=== PATIENT | male | born 1935 | race Caucasian/White ===

== ENCOUNTER 2020-08-15 10:20 | Outpatient (CLI) | payer MEDICARE ==
--- NOTE | 2020-08-15 11:01 | BD ---
EXAM: DEXA bone density examination HISTORY: 85-year-old male with osteopenia for screening COMPARISON: None FINDINGS: L1--bone mineral density 0.992 g/sq cm; T score -0.7 L2--bone mineral density 1.167 g/sq cm; T score 0.7 L3--bone mineral density 1.125 g/sq cm; T score 02 L4--bone mineral density 1.265 g/sq cm; T score 1.6 Total L1-L4--bone mineral density 1.145 g/sq cm; T score 0.5 Right femoral neck--bone mineral density0.557; T score -2.7 Total proximal right femur--bone mineral density 0.820; T score -1.4 IMPRESSION: Osteoporosis.
== END 2020-08-15 10:21 | disposition home or self-care (01) ==
LOC: BICMAMMO 10:20
PROVIDERS: ATTEND Internal Medicine
DX: M80.00XA Age-related osteoporosis with current pathological fracture, unspecified site, initial encounter for fracture (principal)
CPT/HCPCS: 77080

== ENCOUNTER 2021-12-17 10:04 | Outpatient (CLI) | payer MEDICARE | END 2021-12-17 10:05 | disposition home or self-care (01) | LOC: MRI 10:04 | PROVIDERS: ATTEND Internal Medicine | DX: M47.22 Other spondylosis with radiculopathy, cervical region (principal); R20.0 Anesthesia of skin; R29.898 Other symptoms and signs involving the musculoskeletal system; M48.02 Spinal stenosis, cervical region; M43.12 Spondylolisthesis, cervical region | CPT/HCPCS: 72141 ==

== ENCOUNTER 2022-11-11 10:35 | Inpatient (IN) | payer MEDICARE ==
[2022-11-11 11:28] LABS: #Eosinphils 0.2 thou/uL (0.0-0.7); #Lymphocytes 1.4 thou/uL (1.20-3.40); #Monocytes 0.6 thou/uL (0.11-0.59); #Neutrophils 4.1 thou/uL (1.40-6.50); %Basophils 0.7 % (0.0-1.0); %Eosinophils 2.9 % (0.0-10.0); %Lymphocytes 22.2 % (21.0-51.0); %Monocytes 9.2 % (0.0-10.0); Hemoglobin 13.1 g/dL (14.0-18.0); Mean Corpuscular Hemoglobin 31.4 pg (27.0-31.0); Mean Platelet Volume 9.9 fL (7.4-10.4); Platelet Count 164 10x3/uL (130-400); RBC Distribution Width 11.6 % (11.5-14.5); Red Blood Cell (RBC) Count 4.18 mill/uL (4.70-6.10); White Blood Cell (WBC) Count 6.3 10x3/uL (4.8-10.8)
[2022-11-11 11:51] LABS: ALT (SGPT) 26 U/L (8-55); AST (SGOT) 27 U/L (5-34); Albumin 4.4 g/dL (3.4-4.8); Alkaline Phosphatase 51 U/L (40-110); Anion Gap 9 mmol/L (10-20); BUN (Urea Nitrogen) 19 mg/dL (8.4-25.7); Bilirubin, Total 0.8 mg/dL (0.2-1.2); Calc. Creatinine Clearance 0 mL/min (70-130); Calcium 9.2 mg/dL (7.8-10.44); Carbon Dioxide 27 mmol/L (23-31); Chloride 105 mmol/L (98-107); Estimated GFR 62; Globulin 2.9 g/dL (2.4-3.5); Glucose 92 mg/dL (83-110); Lipase 55 U/L (8-78); Potassium 4.2 mmol/L (3.5-5.1); Protein, Total 7.3 g/dL (5.8-8.1); Sodium 137 mmol/L (136-145)
[2022-11-11 12:45] LABS: Magnesium 2.3 mg/dL (1.6-2.6)
[2022-11-11 12:57] LABS: Bilirubin Negative (Negative); Blood, Urine Negative (Negative); Clarity Clear (Clear); Glucose, Urine (Dipstick) Normal (Negative); Ketone, Urine Negative (Negative); Leukocyte Negative Leu/uL (Negative); Nitrite Negative (Negative); Protein, Urine (Dipstick) Negative (Neg-Trace); Specific Gravity, Urine 1.008 (1.002-1.036); Urobilinogen Normal mg/dL (Less than 2)
[2022-11-11] MEDS ORDERED: Iopamidol-370 76% 500 ML 1 ML ONE (13:25)
[2022-11-11] MEDS ORDERED: HYDROcodone/Acetaminophen 7.5/325 mg Tablet PO PRN (14:58)
[2022-11-11] MEDS ORDERED: hydrALAZINE 20 MG/ML VIAL SLOW IVP PRN (15:01)
[2022-11-11 15:32] VITALS: BMI 25.9
[2022-11-12 05:30] LABS: #Eosinphils 0.2 thou/uL (0.0-0.7); #Lymphocytes 1.2 thou/uL (1.20-3.40); #Monocytes 0.6 thou/uL (0.11-0.59); #Neutrophils 3.1 thou/uL (1.40-6.50); %Basophils 0.1 % (0.0-1.0); %Eosinophils 3.8 % (0.0-10.0); %Lymphocytes 23.9 % (21.0-51.0); %Monocytes 11.7 % (0.0-10.0); %Neutrophils 60.6 % (42.0-75.0); Hemoglobin 12.4 g/dL (14.0-18.0); Mean Corpuscular Hemoglobin 32.2 pg (27.0-31.0); Mean Corpuscular Volume 97.4 fl (78.0-98.0); Mean Platelet Volume 9.2 fL (7.4-10.4); Platelet Count 144 10x3/uL (130-400); RBC Distribution Width 11.6 % (11.5-14.5); Red Blood Cell (RBC) Count 3.85 mill/uL (4.70-6.10); White Blood Cell (WBC) Count 5.1 10x3/uL (4.8-10.8)
[2022-11-12] MEDS: Levothyroxine Sodium 88 MCG TAB PO SCH (05:33)
[2022-11-12 05:52] LABS: Anion Gap 9 mmol/L (10-20); BUN (Urea Nitrogen) 17 mg/dL (8.4-25.7); Calc. Creatinine Clearance 61 mL/min (70-130); Calcium 8.6 mg/dL (7.8-10.44); Carbon Dioxide 26 mmol/L (23-31); Chloride 109 mmol/L (98-107); Estimated GFR 69; Glucose 90 mg/dL (83-110); Potassium 3.9 mmol/L (3.5-5.1); Sodium 140 mmol/L (136-145)
[2022-11-12] MEDS: Enoxaparin Sodium 40 MG/0.4 ML SYRINGE SC SCH (08:46)
[2022-11-13] MEDS: Levothyroxine Sodium 88 MCG TAB PO SCH (05:30)
[2022-11-13] MEDS ORDERED: Escitalopram Oxalate 20 mg Tablet PO SCH (09:00)
[2022-11-13] MEDS ORDERED: Polyethylene Glycol 3350 17 GM Packet PO SCH (09:00)
[2022-11-13] MEDS ORDERED: Amlodipine 5 MG TAB PO SCH (09:00)
[2022-11-13] MEDS: Enoxaparin Sodium 40 MG/0.4 ML SYRINGE SC SCH (09:16)
[2022-11-13 12:10] VITALS: BP 142/72; TEMP 98.5
== END 2022-11-13 14:40 | disposition home or self-care (01) | DRG 392 ==
LOC: ERS 10:35 → MSONC 13:14
PROVIDERS: ADMIT Internal Medicine; ATTEND Internal Medicine
DX: R10.31 Right lower quadrant pain (principal); Q43.3 Congenital malformations of intestinal fixation; Z20.822 Contact with and (suspected) exposure to COVID-19; I10 Essential (primary) hypertension; E78.00 Pure hypercholesterolemia, unspecified; K21.9 Gastro-esophageal reflux disease without esophagitis; K59.09 Other constipation; D3A.098 Benign carcinoid tumors of other sites; D64.9 Anemia, unspecified; E03.9 Hypothyroidism, unspecified; Z88.1 Allergy status to other antibiotic agents; Z88.0 Allergy status to penicillin; Z88.2 Allergy status to sulfonamides; Z88.7 Allergy status to serum and vaccine; Z88.8 Allergy status to other drugs, medicaments and biological substances; Z79.899 Other long term (current) drug therapy; Z79.890 Hormone replacement therapy; Z85.46 Personal history of malignant neoplasm of prostate; Z90.79 Acquired absence of other genital organ(s)
CPT/HCPCS: 36415; 74019; 74177; 80048; 80053; 81003; 83690; 83735; 85025; 93005; J1650; Q9967; U0003; U0005

== ENCOUNTER 2022-12-12 09:19 | Outpatient (CLI) | payer MEDICARE ==
[2022-12-12 10:38] LABS: #Eosinphils 0.2 10x3/uL (0.0-0.5); #Monocytes 0.5 10x3/uL (0.0-1.1); #Neutrophils 3.9 10x3/uL (1.5-8.4); %Basophils 0.3 % (0.0-2.0); %Eosinophils 2.6 % (0.0-6.0); %Lymphocytes 21.6 % (18.0-47.0); %Monocytes 9.2 % (0.0-10.0); %Neutrophils 65.8 % (40.0-75.0); Hemoglobin 12.4 g/dL (13.5-17.5); Mean Corpuscular HGB CONC 32.9 g/dL (32.0-36.0); Mean Corpuscular Hemoglobin 31.5 pg (27.0-33.0); Mean Corpuscular Volume 95.7 fl (81.2-95.1); Mean Platelet Volume 12.2 fl (7.4-10.4); Platelet Count 186 10x3/uL (150-450); RBC Distribution Width 12.9 % (11.5-14.5); Red Blood Cell (RBC) Count 3.94 10x6/uL (4.32-5.72); White Blood Cell (WBC) Count 5.9 10x3/uL (3.5-10.5)
[2022-12-12 10:55] LABS: Anion Gap 13 mmol/L (10-20); BUN (Urea Nitrogen) 19 mg/dL (8.4-25.7); Calc. Creatinine Clearance 0 mL/min (70-130); Calcium 9.5 mg/dL (7.8-10.44); Carbon Dioxide 27 mmol/L (23-31); Chloride 107 mmol/L (98-107); Estimated GFR 54; Glucose 84 mg/dL (83-110); Potassium 4.3 mmol/L (3.5-5.1); Sodium 143 mmol/L (136-145)
== END 2022-12-12 09:20 | disposition home or self-care (01) ==
LOC: LABBT 09:19
PROVIDERS: ATTEND Surgery
DX: Z01.818 Encounter for other preprocedural examination (principal); K63.89 Other specified diseases of intestine
CPT/HCPCS: 80048; 85025; 93005; 93010

== ENCOUNTER 2022-12-17 11:00 | Inpatient (IN) | payer MEDICARE ==
[2022-12-16 10:21] VITALS: BMI 28.5
[2022-12-17] MEDS ORDERED: Bupivacaine/Epinephrine 0.25% 30 ML VIAL ONE (12:49)
[2022-12-17] MEDS ORDERED: SUGAMMADEX SODIUM 200 MG/2 ML VIAL ONE (12:59)
[2022-12-17] MEDS ORDERED: Fentanyl 250 MCG/5 ML VIAL ONE (12:59)
[2022-12-17] MEDS ORDERED: cefOXitin 2 GM VIAL ONE (13:00)
[2022-12-17] MEDS ORDERED: Sodium Chloride 0.9% 100 ML ONE (13:00)
[2022-12-17] MEDS ORDERED: Levofloxacin 500 mg/D5W 100 ml Premix Bag ONE (13:24)
[2022-12-17] MEDS ORDERED: PHENYLEPHRINE-NS 100 MCG/ML 10 ML SYRINGE ONE (13:26)
[2022-12-17] MEDS ORDERED: Lidocaine 1% PF 5 ML VIAL ONE (13:26)
[2022-12-17] MEDS ORDERED: ePHEDrine 50 MG/ML VIAL ONE (13:26)
[2022-12-17] MEDS ORDERED: Rocuronium Bromide 10 MG/ML (10ML VIAL) ONE (13:26)
[2022-12-17] MEDS ORDERED: PROPOFOL 200 MG/20 ML VIAL ONE (13:26)
[2022-12-17] MEDS ORDERED: Ondansetron PF 4 MG/2 ML Vial ONE (13:26)
[2022-12-17] MEDS ORDERED: Ropivacaine 0.5% HCl/PF (150 MG/30 ML VIAL) ONE (14:34)
[2022-12-17] MEDS ORDERED: Promethazine HCl 25 MG/ML VIAL IM PRN ×4 (15:22→17:20)
[2022-12-17] MEDS ORDERED: Zolpidem Tartrate 5 MG TAB PO PRN (15:22)
[2022-12-17] MEDS ORDERED: diphenhydrAMINE 50 MG/ML VIAL IM PRN (15:22)
[2022-12-17] MEDS ORDERED: FENTANYL 500 MCG/10 ML VIAL 2,000 MCG in Sodium Chloride 0.9% 60 ML IV PRN (15:22)
[2022-12-17] MEDS ORDERED: Naloxone HCl 0.4 mg/ml Vial IV PRN (15:22)
[2022-12-17] MEDS ORDERED: diphenhydrAMINE 25 MG CAP PO PRN (15:22)
[2022-12-17] MEDS ORDERED: diphenhydrAMINE 50 MG/ML VIAL IVP PRN (15:22)
[2022-12-17] MEDS ORDERED: Ondansetron HCl/PF 4 MG/2 ML Vial IVP PRN (15:25)
[2022-12-17] MEDS ORDERED: HYDROmorphone 2 MG/ML VIAL SLOW IVP PRN (15:25)
[2022-12-17] MEDS ORDERED: Fentanyl 100 MCG/2 ML VIAL ONE (15:27)
[2022-12-17] MEDS ORDERED: Communication Order-Pharmacy FS SCH (15:30)
[2022-12-17] MEDS ORDERED: HYDROmorphone 0.5 MG/0.5 ML SYRINGE ONE (15:43)
[2022-12-17] MEDS ORDERED: hydrALAZINE 20 MG/ML VIAL SLOW IVP PRN (17:20)
[2022-12-17] MEDS ORDERED: Dextrose 50% Abboject 50 ML SYRINGE SLOW IVP PRN (17:20)
[2022-12-17] MEDS ORDERED: Ipratropium/Albuterol 3 ML NEB NEB PRN (17:20)
[2022-12-17] MEDS ORDERED: BEVACIZUMAB 25 MG/ML EA EYE SCH (17:20)
[2022-12-17] MEDS ORDERED: Dextrose 5% in Water 1,000 ML IV PRN (17:20)
[2022-12-17] MEDS: D5 1/2 NS w/20 mEq KCL 1,000 ML IV SCH (18:08)
[2022-12-17] MEDS: SYSTANE GEL OPHTH DROPS 10 ML EA EYE SCH (21:40)
[2022-12-17] MEDS: Famotidine/PF 20 mg/2ml Vial SLOW IVP SCH (21:40)
[2022-12-17] MEDS: Famotidine 20 MG TAB PO SCH (21:40)
[2022-12-18 06:56] LABS: #Lymphocytes 0.9 thou/uL (1.20-3.40); #Neutrophils 11.8 thou/uL (1.40-6.50); %Basophils 0.1 % (0.0-1.0); %Eosinophils 0.2 % (0.0-10.0); %Lymphocytes 6.7 % (21.0-51.0); %Monocytes 7.5 % (0.0-10.0); %Neutrophils 85.5 % (42.0-75.0); Hemoglobin 12.5 g/dL (14.0-18.0); Mean Corpuscular HGB CONC 32.4 g/dL (32.0-36.0); Mean Corpuscular Hemoglobin 31.9 pg (27.0-31.0); Mean Corpuscular Volume 98.5 fl (78.0-98.0); Mean Platelet Volume 9.9 fL (7.4-10.4); Platelet Count 158 10x3/uL (130-400); RBC Distribution Width 11.5 % (11.5-14.5); Red Blood Cell (RBC) Count 3.91 mill/uL (4.70-6.10); White Blood Cell (WBC) Count 13.8 10x3/uL (4.8-10.8)
[2022-12-18 07:16] LABS: Anion Gap 15 mmol/L (10-20); BUN (Urea Nitrogen) 16 mg/dL (8.4-25.7); Calc. Creatinine Clearance 64 mL/min (70-130); Calcium 8.7 mg/dL (7.8-10.44); Carbon Dioxide 23 mmol/L (23-31); Chloride 105 mmol/L (98-107); Estimated GFR 65; Glucose 136 mg/dL (83-110); Potassium 4.5 mmol/L (3.5-5.1); Sodium 138 mmol/L (136-145)
[2022-12-18] MEDS: Escitalopram Oxalate 20 mg Tablet PO SCH (08:08)
[2022-12-18] MEDS: Amlodipine 5 MG TAB PO SCH (08:09)
[2022-12-18] MEDS: Famotidine 20 MG TAB PO SCH ×2 (08:09→20:07)
[2022-12-18] MEDS: Levothyroxine Sodium 88 MCG TAB PO SCH (08:09)
[2022-12-18] MEDS: SYSTANE GEL OPHTH DROPS 10 ML EA EYE SCH ×2 (08:09→20:06)
[2022-12-18] MEDS: Famotidine/PF 20 mg/2ml Vial SLOW IVP SCH ×2 (08:10→20:07)
[2022-12-18] MEDS: D5 1/2 NS w/20 mEq KCL 1,000 ML IV SCH (08:10)
[2022-12-18] MEDS ORDERED: D5 1/2 NS w/20 mEq KCL 1,000 ML IV SCH (09:41)
[2022-12-18] MEDS: HYDROcodone/Acetaminophen 5/325 mg Tablet PO PRN ×2 (11:45→20:05)
[2022-12-18] MEDS: Fentanyl 100 MCG/2 ML VIAL SLOW IVP PRN ×3 (14:53→23:27)
[2022-12-19] MEDS: HYDROcodone/Acetaminophen 5/325 mg Tablet PO PRN ×3 (04:38→20:01)
[2022-12-19] MEDS: Fentanyl 100 MCG/2 ML VIAL SLOW IVP PRN (04:39)
[2022-12-19] MEDS: Amlodipine 5 MG TAB PO SCH (09:08)
[2022-12-19] MEDS: Escitalopram Oxalate 20 mg Tablet PO SCH (09:08)
[2022-12-19] MEDS: Famotidine 20 MG TAB PO SCH ×2 (09:08→20:01)
[2022-12-19] MEDS: Levothyroxine Sodium 88 MCG TAB PO SCH (09:08)
[2022-12-19] MEDS: Famotidine/PF 20 mg/2ml Vial SLOW IVP SCH ×2 (09:09→20:01)
[2022-12-19] MEDS: SYSTANE GEL OPHTH DROPS 10 ML EA EYE SCH ×2 (09:09→20:09)
[2022-12-19] MEDS: Ondansetron PF 4 MG/2 ML Vial IVP PRN (18:47)
[2022-12-20] MEDS: HYDROcodone/Acetaminophen 5/325 mg Tablet PO PRN ×2 (04:41→21:15)
[2022-12-20 05:37] LABS: #Eosinphils 0.1 thou/uL (0.0-0.7); #Lymphocytes 1.4 thou/uL (1.20-3.40); #Monocytes 0.9 thou/uL (0.11-0.59); #Neutrophils 7.8 thou/uL (1.40-6.50); %Basophils 0.2 % (0.0-1.0); %Eosinophils 0.8 % (0.0-10.0); %Lymphocytes 13.7 % (21.0-51.0); %Monocytes 8.8 % (0.0-10.0); %Neutrophils 76.5 % (42.0-75.0); Hemoglobin 14.2 g/dL (14.0-18.0); Mean Corpuscular HGB CONC 32.1 g/dL (32.0-36.0); Mean Corpuscular Hemoglobin 31.7 pg (27.0-31.0); Mean Corpuscular Volume 98.7 fl (78.0-98.0); Mean Platelet Volume 10.4 fL (7.4-10.4); Platelet Count 186 10x3/uL (130-400); RBC Distribution Width 11.7 % (11.5-14.5); Red Blood Cell (RBC) Count 4.48 mill/uL (4.70-6.10); White Blood Cell (WBC) Count 10.2 10x3/uL (4.8-10.8)
[2022-12-20] MEDS: Ondansetron PF 4 MG/2 ML Vial IVP PRN (05:41)
[2022-12-20 06:07] LABS: Anion Gap 13 mmol/L (10-20); BUN (Urea Nitrogen) 14 mg/dL (8.4-25.7); Calc. Creatinine Clearance 64 mL/min (70-130); Calcium 9.7 mg/dL (7.8-10.44); Carbon Dioxide 24 mmol/L (23-31); Chloride 105 mmol/L (98-107); Estimated GFR 66; Glucose 106 mg/dL (83-110); Potassium 4.1 mmol/L (3.5-5.1); Sodium 138 mmol/L (136-145)
[2022-12-20] MEDS ORDERED: Ketorolac Tromethamine 30 MG/ML VIAL IVP PRN (07:53)
[2022-12-20] MEDS ORDERED: Ketorolac Tromethamine 30 MG/ML VIAL IVP SCH (08:15)
[2022-12-20] MEDS: Amlodipine 5 MG TAB PO SCH (09:01)
[2022-12-20] MEDS: Famotidine 20 MG TAB PO SCH ×2 (09:02→21:22)
[2022-12-20] MEDS: SYSTANE GEL OPHTH DROPS 10 ML EA EYE SCH ×2 (09:04→18:04)
[2022-12-20] MEDS: D5 1/2 NS w/20 mEq KCL 1,000 ML IV SCH ×3 (09:07→21:14)
[2022-12-20] MEDS: Escitalopram Oxalate 20 mg Tablet PO SCH (09:07)
[2022-12-20] MEDS: Levothyroxine Sodium 88 MCG TAB PO SCH (09:08)
[2022-12-20] MEDS: Famotidine/PF 20 mg/2ml Vial SLOW IVP SCH ×2 (16:12→21:22)
[2022-12-21] MEDS: D5 1/2 NS w/20 mEq KCL 1,000 ML IV SCH ×3 (07:42→20:24)
[2022-12-21] MEDS: SYSTANE GEL OPHTH DROPS 10 ML EA EYE SCH ×2 (08:25→20:24)
[2022-12-21] MEDS: Famotidine 20 MG TAB PO SCH ×2 (08:26→20:25)
[2022-12-21] MEDS: Escitalopram Oxalate 20 mg Tablet PO SCH (08:26)
[2022-12-21] MEDS: Levothyroxine Sodium 88 MCG TAB PO SCH (08:26)
[2022-12-21] MEDS: Famotidine/PF 20 mg/2ml Vial SLOW IVP SCH ×2 (08:26→20:31)
[2022-12-21] MEDS: Amlodipine 5 MG TAB PO SCH (08:27)
[2022-12-22] MEDS: HYDROcodone/Acetaminophen 5/325 mg Tablet PO PRN (04:20)
[2022-12-22] MEDS: D5 1/2 NS w/20 mEq KCL 1,000 ML IV SCH (06:00)
[2022-12-22] MEDS: Famotidine/PF 20 mg/2ml Vial SLOW IVP SCH ×2 (11:44→23:19)
[2022-12-22] MEDS: Famotidine 20 MG TAB PO SCH ×2 (11:44→23:19)
[2022-12-22] MEDS: Amlodipine 5 MG TAB PO SCH (11:44)
[2022-12-22] MEDS: SYSTANE GEL OPHTH DROPS 10 ML EA EYE SCH ×2 (11:45→23:19)
[2022-12-22] MEDS: Escitalopram Oxalate 20 mg Tablet PO SCH (11:54)
[2022-12-22] MEDS: Levothyroxine Sodium 88 MCG TAB PO SCH (11:55)
[2022-12-23 05:11] VITALS: TEMP 98.4
[2022-12-23] MEDS: D5 1/2 NS w/20 mEq KCL 1,000 ML IV SCH (07:17)
[2022-12-23 07:52] VITALS: BP 136/71
[2022-12-23] MEDS: SYSTANE GEL OPHTH DROPS 10 ML EA EYE SCH (09:11)
[2022-12-23] MEDS: Famotidine 20 MG TAB PO SCH (09:11)
[2022-12-23] MEDS: Levothyroxine Sodium 88 MCG TAB PO SCH (09:11)
[2022-12-23] MEDS: Escitalopram Oxalate 20 mg Tablet PO SCH (09:11)
[2022-12-23] MEDS: Amlodipine 5 MG TAB PO SCH (09:12)
[2022-12-23] MEDS: Famotidine/PF 20 mg/2ml Vial SLOW IVP SCH (10:35)
== END 2022-12-23 11:46 | disposition home or self-care (01) | DRG 327 ==
LOC: SDC 11:00 → SURG A 15:14
PROVIDERS: ADMIT Surgery; ATTEND Surgery
PROC: 0DBV0ZX Excision of Mesentery, Open Approach, Diagnostic (ICD-10-PCS; principal; 2022-12-17)
PROC: 0DJ04ZZ Inspection of Upper Intestinal Tract, Percutaneous Endoscopic Approach (ICD-10-PCS; 2022-12-17)
PROC: 0DS80ZZ Reposition Small Intestine, Open Approach (ICD-10-PCS; 2022-12-17)
PROC: 0WQF0ZZ Repair Abdominal Wall, Open Approach (ICD-10-PCS; 2022-12-17)
PROC: 0WJF4ZZ Inspection of Abdominal Wall, Percutaneous Endoscopic Approach (ICD-10-PCS; 2022-12-17)
PROC: 3E0T3BZ Introduction of Anesthetic Agent into Peripheral Nerves and Plexi, Percutaneous Approach (ICD-10-PCS; 2022-12-17)
DX: D20.1 Benign neoplasm of soft tissue of peritoneum (principal); K56.7 Ileus, unspecified; K91.89 Other postprocedural complications and disorders of digestive system; M86.8X8 Other osteomyelitis, other site; Q43.8 Other specified congenital malformations of intestine; Q43.3 Congenital malformations of intestinal fixation; K63.89 Other specified diseases of intestine; G89.29 Other chronic pain; H35.3230 Exudative age-related macular degeneration, bilateral, stage unspecified; E03.9 Hypothyroidism, unspecified; E78.5 Hyperlipidemia, unspecified; N18.30 Chronic kidney disease, stage 3 unspecified; D63.1 Anemia in chronic kidney disease; K46.9 Unspecified abdominal hernia without obstruction or gangrene; Y83.8 Other surgical procedures as the cause of abnormal reaction of the patient, or of later complication, without mention of misadventure at the time of the procedure; Z86.73 Personal history of transient ischemic attack (TIA), and cerebral infarction without residual deficits; Z53.31 Laparoscopic surgical procedure converted to open procedure; Z79.899 Other long term (current) drug therapy; Z79.890 Hormone replacement therapy; Z79.82 Long term (current) use of aspirin; Z98.42 Cataract extraction status, left eye; Z98.41 Cataract extraction status, right eye; Z85.46 Personal history of malignant neoplasm of prostate; Z80.8 Family history of malignant neoplasm of other organs or systems; Z82.3 Family history of stroke; Z82.49 Family history of ischemic heart disease and other diseases of the circulatory system; Z83.2 Family history of diseases of the blood and blood-forming organs and certain disorders involving the immune mechanism; Z87.891 Personal history of nicotine dependence; Z98.890 Other specified postprocedural states
CPT/HCPCS: 36415; 80048; 85025; 88305; 88341; 88342; 88360; J0694; J1170; J1650; J1885; J1956; J2405; J2704; J2795; J3010; J3480; J3490; S0028

== ENCOUNTER 2023-07-06 10:21 | Outpatient (CLI) | payer MEDICARE, OTHER | END 2023-07-06 10:22 | disposition home or self-care (01) | LOC: MRI 10:21 | PROVIDERS: ATTEND Internal Medicine | DX: I67.9 Cerebrovascular disease, unspecified (principal); R41.3 Other amnesia; J34.89 Other specified disorders of nose and nasal sinuses; R90.82 White matter disease, unspecified | CPT/HCPCS: 70551 ==

== ENCOUNTER 2024-11-11 08:15 | Outpatient (CLI) | payer MEDICARE, OTHER ==
[2024-11-11 09:43] LABS: #Basophils 0.03 10x3/uL (0.0-0.2); %Basophils 0.5 % (0.0-1.0); %Eosinophils 4.3 % (0.0-10.0); %Lymphocytes 23.6 % (21.0-51.0); %Monocytes 8.3 % (0.0-10.0); %Neutrophils 62.8 % (42.0-75.0); Hematocrit 35.8 % (42.0-52.0); Hemoglobin 11.9 g/dL (14.0-18.0); Mean Corpuscular HGB CONC 33.2 g/dL (32.0-36.0); Mean Corpuscular Hemoglobin 30.6 pg (27.0-31.0); Mean Platelet Volume 12.1 fL (7.4-10.4); Platelet Count 185 10x3/uL (130-400); RBC Distribution Width 13.3 % (11.5-14.5); Red Blood Cell (RBC) Count 3.89 mill/uL (4.70-6.10)
[2024-11-11 10:17] LABS: ALT (SGPT) 34 U/L (8-55); AST (SGOT) 30 U/L (5-34); Albumin 3.9 g/dL (3.4-4.8); Alkaline Phosphatase 73 U/L (40-110); Anion Gap 12 mmol/L (10-20); BUN (Urea Nitrogen) 21 mg/dL (8.4-25.7); Bilirubin, Direct 0.2 mg/dL (0.1-0.3); Bilirubin, Total 0.5 mg/dL (0.2-1.2); Calc. Creatinine Clearance 0 mL/min (70-130); Carbon Dioxide 24 mmol/L (23-31); Cardiac Risk 2.9 (Less than 4.5); Chloride 107 mmol/L (98-107); Cholesterol 120 mg/dl (< 200 Desired); Estimated GFR 50; Glucose 91 mg/dL (83-110); HDL Cholesterol 42 mg/dL (>60 Neg Risk); LDL Cholesterol, Calculated 60 mg/dL; Potassium 3.8 mmol/L (3.5-5.1); Protein, Total 6.9 g/dL (5.8-8.1); Sodium 139 mmol/L (136-145); Triglycerides 88 mg/dL (Less than 150)
== END 2024-11-11 08:16 | disposition home or self-care (01) ==
LOC: LABBT 08:15
PROVIDERS: ATTEND Internal Medicine Cardiovascular Disease
DX: Z01.812 Encounter for preprocedural laboratory examination (principal); I25.10 Atherosclerotic heart disease of native coronary artery without angina pectoris
CPT/HCPCS: 80053; 80061; 80076; 85025

== ENCOUNTER 2024-11-14 05:59 | Day surgery (SDC) | payer MEDICARE, OTHER ==
[2024-11-11 08:24] VITALS: BMI 28.6
[2024-11-14 07:21] LABS: Cardiac Risk 2.7 (Less than 4.5)
[2024-11-14] MEDS ORDERED: Heparin 10,000 UNITS/ 10 ML VIAL ONE (08:08)
[2024-11-14] MEDS ORDERED: Nitroglycerin 50 MG/250 ML BOT 250 ML ONE (08:08)
[2024-11-14] MEDS ORDERED: Midazolam HCl 2 mg/2 ml Vial ONE (08:09)
[2024-11-14] MEDS ORDERED: Verapamil 5 MG/2 ML VIAL ONE (08:21)
[2024-11-14] MEDS ORDERED: Clopidogrel Bisulfate 300 MG TAB ONE (09:07)
[2024-11-14] MEDS ORDERED: Aspirin Chewable 81 MG TAB ONE (09:13)
[2024-11-14] MEDS ORDERED: Clopidogrel Bisulfate 75 MG TAB ONE (11:58)
== END 2024-11-14 12:52 | disposition home or self-care (01) ==
LOC: SDC 05:59
PROVIDERS: ATTEND Internal Medicine Cardiovascular Disease
DX: I25.10 Atherosclerotic heart disease of native coronary artery without angina pectoris (principal); R07.2 Precordial pain; R09.89 Other specified symptoms and signs involving the circulatory and respiratory systems; K21.9 Gastro-esophageal reflux disease without esophagitis; R55 Syncope and collapse; I35.0 Nonrheumatic aortic (valve) stenosis; C61 Malignant neoplasm of prostate; E03.9 Hypothyroidism, unspecified; N18.30 Chronic kidney disease, stage 3 unspecified; D63.1 Anemia in chronic kidney disease; Z79.890 Hormone replacement therapy; Z79.899 Other long term (current) drug therapy; Z98.890 Other specified postprocedural states; Z96.642 Presence of left artificial hip joint; Z90.79 Acquired absence of other genital organ(s); Z88.1 Allergy status to other antibiotic agents; Z88.0 Allergy status to penicillin; Z88.8 Allergy status to other drugs, medicaments and biological substances
CPT/HCPCS: 80061; 85347; 93458; C1769 ×2; C1874; C1887; C1894; J1644; J2250; 99152; 99153